=== PATIENT | male | born 1965 | race Two or more races ===

== ENCOUNTER 2018-01-05 23:46 | Emergency (ER) | payer MEDICAID ==
[~2018-01-05] VITALS: Ht 177.8 cm; Wt 98.0 kg
[2018-01-06] MEDS ORDERED: KETOROLAC 60MG/2ML VIAL IM ONE (03:45)
[2018-01-06] MEDS ORDERED: TRAMADOL 50MG TABLET PO ONE (03:45)
[2018-01-06] MEDS ORDERED: DEXAMETHASONE 4MG/ML 1ML VIAL IM ONE (03:45)
[2018-01-06 05:01] VITALS: BP 120/65
== END 2018-01-06 05:05 | disposition home or self-care (01) ==
LOC: ER 23:46
DX: M54.9 Dorsalgia, unspecified (principal)
CPT/HCPCS: 96372; 99284; J1100; J1885; Z7610